=== PATIENT | female | born 1995 | race Caucasian/White ===

== ENCOUNTER 2018-10-25 13:04 | Inpatient (IN) | payer OTHER ==
[2018-10-25 13:43] LABS: ADD UMIC NO; UR ASCORBIC ACID NEGATIVE (NEGATIVE); UR BILIRUBIN (Dip) NEGATIVE (NEGATIVE); UR BLOOD (Dip) NEGATIVE (NEGATIVE); UR CLARITY CLEAR (CLEAR); UR COLOR YELLOW (YELLOW); UR GLUCOSE (Dip) NEGATIVE (NEGATIVE); UR KETONES (Dip) NEGATIVE (NEGATIVE); UR LEUKOCYTE ESTERASE (Dip) NEGATIVE Leu/ul (NEGATIVE); UR NITRITE (Dip) NEGATIVE (NEGATIVE); UR SPECIFIC GRAVITY (Dip) 1.009 (1.003-1.030); UR TOTAL PROTEIN (Dip) NEGATIVE (NEGATIVE); UR UROBILINOGEN (Dip) NEGATIVE (NEGATIVE)
[2018-10-25 13:50] LABS: ADD MAN DIFF? NO
[2018-10-25 13:52] LABS: BASOPHILS % 0.4 % (0.0-2.0); EOSINOPHILS # 0.2 10^3/ul (0.0-0.5); EOSINOPHILS % 1.6 % (0.0-7.0); HEMATOCRIT 34.2 % (37.0-47.0); HEMOGLOBIN 11.7 g/dl (12.0-16.0); LYMPHOCYTES # 1.4 10^3/ul (0.8-2.9); LYMPHOCYTES % 13.6 % (15.0-51.0); MEAN CORPUSCULAR HEMOGLOBIN 31.4 pg (29.0-33.0); MEAN CORPUSCULAR HGB CONC 34.2 g/dl (32.0-37.0); MEAN CORPUSCULAR VOLUME 91.7 fl (82.0-101.0); MEAN PLATELET VOLUME 11.8 fl (7.4-10.4); MONOCYTE # 0.9 10^3/ul (0.3-0.9); NEUTROPHIL # 7.8 10^3/ul (1.6-7.5); NEUTROPHILS % 74.9 % (39.0-77.0); PLATELET COUNT 167 10^3/UL (140-415); RED BLOOD COUNT 3.73 10^6/ul (4.20-5.40); RED CELL DISTRIBUTION WIDTH 13.7 % (11.5-14.5)
[2018-10-25 13:52] LABS: WHITE BLOOD COUNT 10.5 10^3/ul (4.8-10.8)
[2018-10-25 14:09] LABS: ALANINE AMINOTRANSFERASE 19 IU/L (13-69); ALBUMIN 3.2 g/dl (3.3-4.9); ALBUMIN/GLOBULIN RATIO 0.88; ALKALINE PHOSPHATASE 188 IU/L (42-121); ANION GAP 8 (5-13); ASPARTATE AMINO TRANSFERASE 26 IU/L (15-46); BILIRUBIN,INDIRECT 0.4 mg/dl (0-1.1); BILIRUBIN,TOTAL 0.4 mg/dl (0.2-1.3); BLOOD UREA NITROGEN 11 mg/dl (7-20); CALCIUM 8.8 mg/dl (8.4-10.2); CARBON DIOXIDE 22 mmol/L (21-31); CHLORIDE 106 mmol/L (97-110); CREATININE 0.61 mg/dl (0.44-1.00); Estimated GFR > 60 mL/min (>60); GLUCOSE 75 mg/dl (70-220); POTASSIUM 3.8 mmol/L (3.5-5.1); SODIUM 136 mmol/L (135-144); TOTAL PROTEIN 6.8 g/dl (6.1-8.1); URIC ACID 3.9 mg/dl (3.1-7.9)
[2018-10-25 14:13] LABS: INR 0.87; PROTIME 11.9 Sec (11.9-14.9); PT RATIO 0.9
[2018-10-25 14:14] LABS: PARTIAL THROMBOPLASTIN TIME 29.9 Sec (23.0-35.0)
[2018-10-25] MEDS: MAGNESIUM SULFATE 20 GM/500 ML 500 ML IV (14:34)
[2018-10-25] MEDS ORDERED: BUTORPHANOL 2 MG INJ IV (15:00)
[2018-10-25] MEDS ORDERED: OXYTOCIN 30 UNITS/LR 500 ML IV ×2 (15:00)
[2018-10-25] MEDS ORDERED: CA GLUCONATE (GM) 10% 10ML INJ IV (15:00)
[2018-10-25] MEDS ORDERED: CARBOPROST 250 MCG INJ IM (15:00)
[2018-10-25] MEDS ORDERED: LIDOCAINE 1% (MPF) 30 ML INJ INJ (15:00)
[2018-10-25] MEDS: LACTATED RINGER'S 1,000 ML IV (15:18)
[2018-10-25 15:27] LABS: HEPATITIS B SURFACE ANTIGEN NEGATIVE (NEGATIVE)
[2018-10-25] MEDS: MAGNESIUM SULFATE 4 GM/100 ML 100 ML IV (15:45)
[2018-10-25] MEDS: OXYTOCIN 30 UNITS/LR 500 ML IV (15:56)
[2018-10-25 18:47] LABS: MAGNESIUM 4.3 mg/dl (1.7-2.5)
[2018-10-25 22:14] LABS: RAPID PLASMA REAGIN NONREACTIVE (NR)
[2018-10-26] MEDS: LACTATED RINGER'S 1,000 ML IV ×5 (00:07→22:34)
[2018-10-26] MEDS ORDERED: FENTAnyl 2MCG/ML-ROPIV 0.2% 100 ML (00:48)
[2018-10-26] MEDS ORDERED: FENTAnyl 2MCG/ML-ROPIV 0.2% 100 ML BAG EPI (01:00)
[2018-10-26] MEDS ORDERED: NALOXONE (0.4 MG/ML) INJ IV (01:00)
[2018-10-26] MEDS ORDERED: DIPHENHYDRAMINE 50 MG INJ IV (01:00)
[2018-10-26 01:16] LABS: MAGNESIUM 5.3 mg/dl (1.7-2.5)
[2018-10-26] MEDS: MAGNESIUM SULFATE 20 GM/500 ML 500 ML IV ×3 (02:58→20:34)
[2018-10-26] MEDS ORDERED: MINERAL OIL LIGHT 10 ML VIAL TOP (04:30)
[2018-10-26] MEDS: ONDANSETRON 4 MG INJ IV (06:10)
[2018-10-26 07:07] LABS: MAGNESIUM 6.1 mg/dl (1.7-2.5)
[2018-10-26] MEDS: MISOPROSTOL 200 MCG TAB PR (07:14)
[2018-10-26] MEDS: OXYTOCIN 30 UNITS/LR 500 ML IV ×2 (07:32→16:05)
[2018-10-26] MEDS: LACTATED RINGER'S 1,000 ML IV* ×2 (08:03→16:03)
[2018-10-26] MEDS ORDERED: OXYTOCIN 30 UNITS/LR 500 ML IV (08:30)
[2018-10-26] MEDS ORDERED: MAGNESIUM HYDROXIDE 30ML CUP PO (08:30)
[2018-10-26] MEDS ORDERED: DIPHENHYDRAMINE 25 MG CAP PO (08:30)
[2018-10-26] MEDS ORDERED: CARBOPROST 250 MCG INJ IM (08:30)
[2018-10-26] MEDS ORDERED: NA PHOSPHATE/BIPHOS 133 ML ENEMA PR (08:30)
[2018-10-26] MEDS ORDERED: ZOLPIDEM 5 MG TAB PO (08:30)
[2018-10-26] MEDS ORDERED: METHYLERGONOVINE 0.2 MG TAB PO (08:30)
[2018-10-26] MEDS ORDERED: MISOPROSTOL 200 MCG TAB PR (08:30)
[2018-10-26] MEDS ORDERED: ONDANSETRON 4 MG INJ IV (08:30)
[2018-10-26] MEDS ORDERED: METHYLERGONOVINE 0.2 MG INJ IM (08:30)
[2018-10-26] MEDS ORDERED: HYDROCODONE/APAP (5/325) TAB PO ×2 (08:30)
[2018-10-26] MEDS: IBUPROFEN 600 MG TAB PO (08:35)
[2018-10-26] MEDS: WITCH HAZEL/GLYCERIN PAD PR (10:28)
[2018-10-26] MEDS: SENNA/DOCUSATE NA (8.6MG/50MG) TAB PO ×2 (10:28→21:11)
[2018-10-26] MEDS: LANOLIN HPA 1 PKT TOP (10:28)
[2018-10-26] MEDS: BENZOCAINE 20% 56 ML SPRAY TOP (10:28)
[2018-10-26] MEDS: IBUPROFEN 800 MG TAB PO ×2 (14:05→21:11)
[2018-10-26 14:07] LABS: MAGNESIUM 6.3 mg/dl (1.7-2.5)
[2018-10-26 19:54] LABS: MAGNESIUM 6.4 mg/dl (1.7-2.5)
[2018-10-27] MEDS: LACTATED RINGER'S 1,000 ML IV* (00:03)
[2018-10-27 01:19] LABS: MAGNESIUM 4.1 mg/dl (1.7-2.5)
[2018-10-27] MEDS: IBUPROFEN 800 MG TAB PO ×3 (05:42→23:26)
[2018-10-27] MEDS: LACTATED RINGER'S 1,000 ML IV (06:34)
[2018-10-27] MEDS: MAGNESIUM SULFATE 20 GM/500 ML 500 ML IV (06:34)
[2018-10-27 06:37] LABS: ADD MAN DIFF? NO
[2018-10-27 06:47] LABS: BASOPHILS % 0.3 % (0.0-2.0); EOSINOPHILS # 0.2 10^3/ul (0.0-0.5); EOSINOPHILS % 1.1 % (0.0-7.0); HEMATOCRIT 27.5 % (37.0-47.0); HEMOGLOBIN 9.5 g/dl (12.0-16.0); LYMPHOCYTES # 1.9 10^3/ul (0.8-2.9); LYMPHOCYTES % 13.8 % (15.0-51.0); MEAN CORPUSCULAR HEMOGLOBIN 31.9 pg (29.0-33.0); MEAN CORPUSCULAR HGB CONC 34.5 g/dl (32.0-37.0); MEAN CORPUSCULAR VOLUME 92.3 fl (82.0-101.0); MONOCYTE # 0.9 10^3/ul (0.3-0.9); MONOCYTES % 6.7 % (0.0-11.0); NEUTROPHIL # 10.6 10^3/ul (1.6-7.5); NEUTROPHILS % 77.5 % (39.0-77.0); PLATELET COUNT 158 10^3/UL (140-415); RED BLOOD COUNT 2.98 10^6/ul (4.20-5.40); RED CELL DISTRIBUTION WIDTH 14.2 % (11.5-14.5)
[2018-10-27 06:47] LABS: WHITE BLOOD COUNT 13.7 10^3/ul (4.8-10.8)
[2018-10-27 07:13] LABS: MAGNESIUM 3.2 mg/dl (1.7-2.5)
[2018-10-27] MEDS: SENNA/DOCUSATE NA (8.6MG/50MG) TAB PO ×2 (09:27→20:55)
[2018-10-28] MEDS: DIPHTH/TET/ACEL PERTUSS (ADULT) 0.5 ML VIAL IM* (07:56)
[2018-10-28] MEDS: MEASLES,MUMPS,RUBELLA VACCINE INJ SC* (07:56)
[2018-10-28] MEDS: SENNA/DOCUSATE NA (8.6MG/50MG) TAB PO (09:00)
[2018-10-28] MEDS: VARICELLA VACCINE LIVE/PF 1,350 UNIT/0.5 ML ML SC* (09:00)
== END 2018-10-28 17:10 | disposition home or self-care (01) | DRG 807 ==
LOC: OBT 13:04 → L-D 13:06 → PP1 10-26 08:59 → L-D 13:07 → OBT 14:30 → L-D 14:30
PROC: 10E0XZZ Delivery of Products of Conception, External Approach (ICD-10-PCS; principal; 2018-10-26)
PROC: 0KQM0ZZ Repair Perineum Muscle, Open Approach (ICD-10-PCS; 2018-10-26)
PROC: 10H07YZ Insertion of Other Device into Products of Conception, Via Natural or Artificial Opening (ICD-10-PCS; 2018-10-26)
PROC: 10H073Z Insertion of Monitoring Electrode into Products of Conception, Via Natural or Artificial Opening (ICD-10-PCS; 2018-10-26)
DX: O13.4 Gestational [pregnancy-induced] hypertension without significant proteinuria, complicating childbirth (principal); O70.1 Second degree perineal laceration during delivery; O75.89 Other specified complications of labor and delivery; O99.02 Anemia complicating childbirth; Z3A.38 38 weeks gestation of pregnancy; Z37.0 Single live birth
CPT/HCPCS: 62322; 76815; 76818; 80053; 81003; 83735; 84560; 85025; 85384; 85610; 85730; 86592; 86850; 86900; 86901; 87340; 90716